=== PATIENT | female | born 1965 | race Caucasian/White ===

== ENCOUNTER 2021-05-18 08:16 | Inpatient (IN) | payer MEDICAID ==
[~2021-05-18] VITALS: Ht 165.1 cm; Wt 122.7 kg
[2021-05-18] MEDS ORDERED: acetaminophen 325mg tablet PO STA (08:48)
[2021-05-18] MEDS ORDERED: CefTRIAXone 2gm/D5W 50ml BAG 50 ML IV ONE (08:50)
[2021-05-18] MEDS ORDERED: normal saline 1000ML IV soln IV ONE (08:50)
[2021-05-18 09:49] LABS: BASOPHILS % (AUTO) 0.1 % (0-1); EOSINOPHILS % (AUTO) 0 % (0-6); HEMATOCRIT 39.1 % (35.0-45.0); LYMPHOCYTES # (AUTO) 1.1 X10'3 (1.1-4.8); LYMPHOCYTES % (AUTO) 5.1 % (21-51); MEAN CORPUSCULAR HEMOGLOBIN 31.7 PG (27.0-31.0); MEAN CORPUSCULAR HGB CONC 33.3 g/dL (33.0-36.5); MEAN CORPUSCULAR VOLUME 95.2 FL (78-98); MEAN PLATELET VOLUME 7.9 FL (7.4-10.4); MONOCYTES # (AUTO) 0.8 X10'3 (0-0.9); MONOCYTES % (AUTO) 3.9 % (2-12); NEUTROPHILS # (AUTO) 19.4 X10'3 (1.8-7.7); NEUTROPHILS % (AUTO) 90.9 % (42-75); PLATELET COUNT 191 X10'3 (140-440); RED BLOOD COUNT 4.11 X10'6 (4.20-5.60); RED CELL DISTRIBUTION WIDTH 13.5 % (11.5-14.5); WHITE BLOOD COUNT 21.3 X10'3 (4.5-11.0)
[2021-05-18] MEDS ORDERED: methylPREDNISolone sod succ 125mg/2ml vial IV ONE (10:05)
[2021-05-18] MEDS ORDERED: ipratropium/albuterol 3ml nebule NEB ONE (10:05)
[2021-05-18 10:06] LABS: ALANINE AMINOTRANSFERASE 36 U/L (12-78); ALBUMIN/GLOBULIN RATIO 0.7 (1.1-1.5); ANION GAP 8 (8-16); ASPARTATE AMINO TRANSFERASE 22 U/L (10-37); BLOOD UREA NITROGEN 22 MG/DL (7-18); BUN/CREATININE RATIO 9.5 (6.6-38.0); CALCIUM 8.8 MG/DL (8.5-10.1); CHLORIDE 95 MMOL/L (99-107); CREATININE 2.32 MG/DL (0.40-0.90); GLUCOSE 159 MG/DL (70-104); POTASSIUM 4.6 MMOL/L (3.5-5.1); SODIUM 128 MMOL/L (135-145); TOTAL CARBON DIOXIDE 25.1 MMOL/L (24-32); TOTAL PROTEIN 7.4 G/DL (6.4-8.2); eGFR 22 ML/MIN
[2021-05-18 10:48] LABS: TOTAL CELLS COUNTED 100; TOXIC VACUOLATION 1+
[2021-05-18 10:49] LABS: PLATELET ESTIMATE NORMAL; TOXIC GRANULATION 3+
--- NOTE | 2021-05-18 11:00 | NUR ---
RT AT BEDSIDE FOR BREATHING TREATMENT ORDERED.
[2021-05-18 11:11] LABS: ALKALINE PHOSPHATASE 84 IU/L (46-116)
[2021-05-18] MEDS ORDERED: potassium Cl 20 mEq SR tablet PO PRN ×2 (11:55)
[2021-05-18] MEDS ORDERED: magnesium 4gm in 100ml NS 100 ML IV PRN (11:55)
[2021-05-18] MEDS ORDERED: magnesium hydroxide 30ml (MOM) UD suspension PO PRN (11:55)
[2021-05-18] MEDS ORDERED: acetaminophen 325mg tablet PO PRN (11:55)
[2021-05-18] MEDS ORDERED: magnesium 2GM in 50ml NS 50 ML IV PRN (11:55)
[2021-05-18] MEDS ORDERED: mag hydrox/Alum hydrox/simeth 30ml oral suspension PO PRN (11:55)
[2021-05-18] MEDS ORDERED: potassium CL 10mEq/100ml bag 100 ML IV PRN (11:55)
[2021-05-18] MEDS ORDERED: magnesium Cl slow-release 64mg tablet PO PRN (11:55)
[2021-05-18] MEDS ORDERED: ondansetron/PF 4mg/2ml inj IV PRN (11:55)
[2021-05-18] MEDS: normal saline 1000ml 1,000 ML IV SCH ×2 (12:21→17:51)
[2021-05-18] MEDS ORDERED: LISI5TAB22 PO (12:33)
[2021-05-18] MEDS ORDERED: GABA300C PO (12:33)
[2021-05-18] MEDS ORDERED: CHOL500050 PO (12:33)
[2021-05-18] MEDS ORDERED: LAMO200T10 PO (12:33)
[2021-05-18] MEDS ORDERED: BUDE10.27 PO (12:33)
[2021-05-18] MEDS ORDERED: ALBU8.5H17 IH (12:33)
[2021-05-18] MEDS ORDERED: ATOR20TA66 PO (12:33)
[2021-05-18] MEDS ORDERED: METF-438 PO (12:33)
[2021-05-18] MEDS ORDERED: IBUP-1986 PO (12:33)
[2021-05-18] MEDS ORDERED: NALT50TA PO (12:33)
[2021-05-18] MEDS ORDERED: PALI3TAB5 PO (12:33)
[2021-05-18] MEDS ORDERED: albuterol 2.5 MG/3 ML nebule NEB PRN (12:40)
[2021-05-18 13:30] LABS: CLARITY,URINE SLIGHTLY CLOUDY (Clear); COLOR,URINE YELLOW (Yellow); GLUCOSE, URINE NEGATIVE (Neg); KETONES,URINE NEGATIVE (Neg); LEUKOCYTE ESTERASE ,URINE NEGATIVE (Neg); NITRITES, URINE NEGATIVE (Neg); OCCULT BLOOD,URINE SMALL (Neg); PROTEIN,URINE TRACE mg/dl (Neg); UROBILINOGEN,URINE 0.2 E.U/dL (0.2-1.0)
[2021-05-18 13:35] LABS: UA COLLECTION TYPE CLN CATCH MIDSTREAM
[2021-05-18 13:37] LABS: BACTERIA,URINE 1+ /HPF (Neg); RBC,URINE 0-2 /HPF (0-2); WBC,URINE 0-4 /HPF (0-4)
[2021-05-18 13:38] LABS: MUCUS STRANDS FEW /LPF (Neg); SQUAMOUS EPITHELIAL CELL,UR MANY /LPF (FEW)
[2021-05-18 13:56] LABS: MAGNESIUM 1.4 MG/DL (1.5-2.4)
[2021-05-18] MEDS ORDERED: albuterol 2.5 MG/3 ML nebule NEB SCH ×2 (14:00→20:00)
[2021-05-18] MEDS: gabapentin 300mg capsule PO SCH ×3 (14:41→20:51)
[2021-05-18 17:43] VITALS: BP 129/77
[2021-05-18] MEDS: nicotine 14mg patch - 24hr TD SCH (17:52)
[2021-05-18 18:00] VITALS: BP 124/65
--- NOTE | 2021-05-18 18:37 | NUR ---
Problems reprioritized. Patient report given, questions answered & plan of care reviewed with Vidhi MCMAHAN.
[2021-05-18] MEDS: K and/or MAG REPLACEMENT MC SCH (20:00)
[2021-05-18] MEDS: budesonide 0.5mg/2ml UD nebule IH SCH (20:36)
[2021-05-18] MEDS: docusate sod 100mg capsule PO SCH (20:51)
[2021-05-18] MEDS ORDERED: PALIPERIDONE 3 MG TAB.ER.24 PO SCH (21:00)
[2021-05-18] MEDS: ibuprofen tablet 400 MG TABLET PO PRN (21:47)
[2021-05-18] MEDS: LORazepam 2 mg/ml vial IV PRN (21:48)
[2021-05-18 22:00] VITALS: BP 150/82
[2021-05-19 02:00] VITALS: BP 122/70
[2021-05-19] MEDS: albuterol 2.5 MG/3 ML nebule NEB SCH ×4 (02:51→20:14)
[2021-05-19 06:00] VITALS: BP 136/80
[2021-05-19 06:29] LABS: BASOPHILS % (AUTO) 0.1 % (0-1); EOSINOPHILS % (AUTO) 0 % (0-6); HEMATOCRIT 36.7 % (35.0-45.0); HEMOGLOBIN 12.4 g/dl (12.0-16.0); LYMPHOCYTES # (AUTO) 0.8 X10'3 (1.1-4.8); LYMPHOCYTES % (AUTO) 5.3 % (21-51); MEAN CORPUSCULAR HEMOGLOBIN 31.9 PG (27.0-31.0); MEAN CORPUSCULAR HGB CONC 33.6 g/dL (33.0-36.5); MEAN CORPUSCULAR VOLUME 94.9 FL (78-98); MEAN PLATELET VOLUME 7.6 FL (7.4-10.4); MONOCYTES # (AUTO) 0.4 X10'3 (0-0.9); MONOCYTES % (AUTO) 2.8 % (2-12); NEUTROPHILS # (AUTO) 14.3 X10'3 (1.8-7.7); NEUTROPHILS % (AUTO) 91.8 % (42-75); PLATELET COUNT 184 X10'3 (140-440); RED BLOOD COUNT 3.87 X10'6 (4.20-5.60); RED CELL DISTRIBUTION WIDTH 13.5 % (11.5-14.5); WHITE BLOOD COUNT 15.5 X10'3 (4.5-11.0)
[2021-05-19 06:48] LABS: ALBUMIN 2.7 G/DL (3.4-5.0); ANION GAP 9 (8-16); BLOOD UREA NITROGEN 21 MG/DL (7-18); BUN/CREATININE RATIO 21.6 (6.6-38.0); CALCIUM 8.9 MG/DL (8.5-10.1); CHLORIDE 105 MMOL/L (99-107); CREATININE 0.97 MG/DL (0.40-0.90); GLUCOSE 288 MG/DL (70-104); SODIUM 136 MMOL/L (135-145); TOTAL CARBON DIOXIDE 22.2 MMOL/L (24-32); eGFR 60 ML/MIN
[2021-05-19] MEDS: normal saline 1000ml 1,000 ML IV SCH ×2 (07:55→18:00)
[2021-05-19] MEDS ORDERED: enoxaparin 40mg/0.4ml syringe SUBCUT SCH (08:00)
[2021-05-19] MEDS: K and/or MAG REPLACEMENT MC SCH ×2 (08:00→20:00)
[2021-05-19] MEDS: budesonide 0.5mg/2ml UD nebule IH SCH ×2 (08:58→20:00)
[2021-05-19] MEDS: nicotine 14mg patch - 24hr TD SCH (09:05)
[2021-05-19] MEDS: lamoTRIgine 100mg tablet PO SCH (09:05)
[2021-05-19] MEDS: cholecalciferol (vitamin D3) 1,000 unit (25mcg) tablet PO SCH (09:06)
[2021-05-19] MEDS: azithromycin 250mg tablet PO SCH (09:06)
[2021-05-19] MEDS: docusate sod 100mg capsule PO SCH ×2 (09:06→20:05)
[2021-05-19] MEDS: gabapentin 300mg capsule PO SCH (09:06)
[2021-05-19] MEDS: atorvastatin 20mg tablet PO SCH (09:06)
[2021-05-19] MEDS: lisinopril 5mg tablet PO SCH (09:07)
[2021-05-19] MEDS: CefTRIAXone/D5W-Rocephin 1gm 50 ML IV SCH (09:07)
[2021-05-19] MEDS: PALIPERIDONE 3 MG TAB.ER.24 PO SCH (10:47)
[2021-05-19] MEDS: naltrexone 50mg tablet PO SCH (10:48)
[2021-05-19 11:00] VITALS: BP 146/81
[2021-05-19] MEDS ORDERED: dextrose 50%-water 50ml dispensing syringe IV PRN ×2 (15:30)
[2021-05-19] MEDS ORDERED: dextrose ORAL solution 15 GM/59 ML bottle PO PRN ×2 (15:30)
[2021-05-19] MEDS ORDERED: MESSAGE TO PHARMACY PO ONE (15:30)
[2021-05-19] MEDS ORDERED: glucagon, human recombinant 1mg kit SUBCUT PRN (15:30)
[2021-05-19] MEDS ORDERED: insulin Lispro (HumaLOG) vial - multi-dose SQ SCH (15:30)
[2021-05-19] MEDS: LORazepam 2 mg/ml vial IV PRN ×2 (16:06→20:14)
[2021-05-19 16:10] LABS: HEMOGLOBIN A1C 6.9 % (4.5-6.2)
--- NOTE | 2021-05-19 17:45 | NUR ---
Miss Mast has been assessed as indicted. She has successfully delma treated for a headache x1 this shift. All of her home meds are in place. She did place a call to her mental health facility to verify that they were. Miss Mast is frequently tearful and the triggers are unpredictable. She states that she drinks more that 40ounces of beer daily. and she often reports that she wants beer "now". She reports hallucinations, stating that when she closes her eyes she sees people that she doesn't know. She has been medicated with PRN IV Ativan for anxiety. She tolerates IV fluids well.
[2021-05-19 18:00] VITALS: BP 158/87
--- NOTE | 2021-05-19 18:15 | NUR ---
Problems reprioritized. Patient report given, questions answered & plan of care reviewed with CHAYO MCMAHAN.
[2021-05-19] MEDS: ibuprofen tablet 400 MG TABLET PO PRN (20:05)
[2021-05-19 22:00] VITALS: BP 140/80
[2021-05-19] MEDS: insulin glargine (Lantus) pen - multi-dose SQ SCH (23:01)
[2021-05-20 02:00] VITALS: BP 132/78
[2021-05-20] MEDS: normal saline 1000ml 1,000 ML IV SCH ×3 (03:55→23:55)
[2021-05-20] MEDS: albuterol 2.5 MG/3 ML nebule NEB SCH ×4 (05:54→19:51)
[2021-05-20 06:00] VITALS: BP 175/97
--- NOTE | 2021-05-20 06:40 | NUR ---
Problems reprioritized. Patient report given, questions answered & plan of care reviewed with CED MCMAHAN.
[2021-05-20] MEDS: nicotine 14mg patch - 24hr TD SCH (07:02)
[2021-05-20] MEDS: LORazepam 2 mg/ml vial IV PRN ×2 (07:02→15:31)
[2021-05-20] MEDS: K and/or MAG REPLACEMENT MC SCH ×2 (08:00→20:00)
[2021-05-20] MEDS: CefTRIAXone/D5W-Rocephin 1gm 50 ML IV SCH (08:00)
[2021-05-20] MEDS: cholecalciferol (vitamin D3) 1,000 unit (25mcg) tablet PO SCH (09:22)
[2021-05-20] MEDS: lamoTRIgine 100mg tablet PO SCH (09:22)
[2021-05-20] MEDS: PALIPERIDONE 3 MG TAB.ER.24 PO SCH (09:22)
[2021-05-20] MEDS: gabapentin 400mg capsule PO SCH (09:23)
[2021-05-20] MEDS: naltrexone 50mg tablet PO SCH (09:23)
[2021-05-20] MEDS: lisinopril 5mg tablet PO SCH (09:24)
[2021-05-20] MEDS: gabapentin 300mg capsule PO SCH (09:24)
[2021-05-20] MEDS: budesonide 0.5mg/2ml UD nebule IH SCH ×2 (09:24→19:51)
[2021-05-20] MEDS: atorvastatin 20mg tablet PO SCH (09:25)
[2021-05-20] MEDS: enoxaparin 30mg/0.3ml syringe SUBCUT SCH (09:25)
[2021-05-20] MEDS: docusate sod 100mg capsule PO SCH ×2 (09:25→21:26)
[2021-05-20] MEDS: azithromycin 250mg tablet PO SCH (09:25)
[2021-05-20 11:00] VITALS: BP 196/102
[2021-05-20 13:34] LABS: BASOPHILS % (AUTO) 0.3 % (0-1); EOSINOPHILS % (AUTO) 0.2 % (0-6); HEMATOCRIT 37.7 % (35.0-45.0); HEMOGLOBIN 12.7 g/dl (12.0-16.0); LYMPHOCYTES # (AUTO) 2.3 X10'3 (1.1-4.8); LYMPHOCYTES % (AUTO) 20.2 % (21-51); MEAN CORPUSCULAR HEMOGLOBIN 31.8 PG (27.0-31.0); MEAN CORPUSCULAR HGB CONC 33.8 g/dL (33.0-36.5); MEAN CORPUSCULAR VOLUME 94.1 FL (78-98); MEAN PLATELET VOLUME 7.6 FL (7.4-10.4); MONOCYTES # (AUTO) 0.5 X10'3 (0-0.9); MONOCYTES % (AUTO) 4.1 % (2-12); NEUTROPHILS # (AUTO) 8.7 X10'3 (1.8-7.7); NEUTROPHILS % (AUTO) 75.2 % (42-75); PLATELET COUNT 215 X10'3 (140-440); RED BLOOD COUNT 4.01 X10'6 (4.20-5.60); RED CELL DISTRIBUTION WIDTH 13.4 % (11.5-14.5); WHITE BLOOD COUNT 11.6 X10'3 (4.5-11.0)
[2021-05-20] MEDS: hydrALAZINE 20mg/ml inj. IV PRN ×2 (14:50→22:20)
[2021-05-20 15:00] VITALS: BP 214/97
--- NOTE | 2021-05-20 17:45 | NUR ---
Miss Mast has been assessed as indicated. today he lung sounds were coarse. She has moist productive cough. She has requested mucinex. She tolerates IV Abx, IVF and nebulizers well. She has had several outbursts today. she yells out for beer or cigarettes. At the start of the shift she tried to leave the floor to go outside to smoke. She has periods of time when she is unexpectedly tearful and requires soothing. All efforts have been made to keep her as comfortable as possible. She was incontinent of bladder and was assisted back to bed and a purewick was placed. Blood pressure has been elevated and PRN IV Hydralazine has been added to the MAR. And she has been given one dose. PO intake has been limited, She is presently resting quietly and will continue to be monitored.
[2021-05-20 18:00] VITALS: BP 159/90
--- NOTE | 2021-05-20 18:29 | NUR ---
Problems reprioritized. Patient report given, questions answered & plan of care reviewed with KATIA MCMAHAN
--- NOTE | 2021-05-20 20:27 | NUR ---
patient in bed very restless sob at rest on upon exertion 02 sat at 90% on room air. Rt called sharad tx given 02 at 93% Patient stated that she uses CPAP at night . called placed to Dr Voss new order received for Cpap order read back.
[2021-05-20] MEDS: insulin glargine (Lantus) pen - multi-dose SQ SCH (21:00)
[2021-05-20] MEDS: guaiFENesin ER 600mg tablet PO SCH (21:26)
[2021-05-20 22:00] VITALS: BP 177/92
[2021-05-20] MEDS: ibuprofen tablet 400 MG TABLET PO PRN (23:43)
[2021-05-21 02:00] VITALS: BP 158/88
[2021-05-21] MEDS: albuterol 2.5 MG/3 ML nebule NEB SCH ×2 (02:29→10:04)
--- NOTE | 2021-05-21 04:51 | NUR ---
Patient was in cpaap for couple hours assisted patient to bathroom return to bed but refused Cpap. Patient also refused telebox Mr Voss aware.
[2021-05-21 06:59] LABS: BASOPHILS % (AUTO) 0.4 % (0-1); EOSINOPHILS % (AUTO) 0.2 % (0-6); HEMOGLOBIN 12.8 g/dl (12.0-16.0); LYMPHOCYTES % (AUTO) 26.2 % (21-51); MEAN CORPUSCULAR HEMOGLOBIN 32.2 PG (27.0-31.0); MEAN CORPUSCULAR HGB CONC 34.7 g/dL (33.0-36.5); MONOCYTES # (AUTO) 0.5 X10'3 (0-0.9); MONOCYTES % (AUTO) 7.2 % (2-12); NEUTROPHILS # (AUTO) 5.1 X10'3 (1.8-7.7); PLATELET COUNT 201 X10'3 (140-440); RED BLOOD COUNT 3.98 X10'6 (4.20-5.60); RED CELL DISTRIBUTION WIDTH 13.3 % (11.5-14.5); WHITE BLOOD COUNT 7.6 X10'3 (4.5-11.0)
[2021-05-21 07:22] LABS: ANION GAP 8 (8-16); BLOOD UREA NITROGEN 9 MG/DL (7-18); CALCIUM 9.1 MG/DL (8.5-10.1); CHLORIDE 103 MMOL/L (99-107); CREATININE 0.53 MG/DL (0.40-0.90); GLUCOSE 148 MG/DL (70-104); POTASSIUM 3.6 MMOL/L (3.5-5.1); SODIUM 137 MMOL/L (135-145); TOTAL CARBON DIOXIDE 26.1 MMOL/L (24-32); eGFR > 90 ML/MIN
[2021-05-21] MEDS: cholecalciferol (vitamin D3) 1,000 unit (25mcg) tablet PO SCH (08:27)
[2021-05-21] MEDS: PALIPERIDONE 3 MG TAB.ER.24 PO SCH (08:27)
[2021-05-21] MEDS: lamoTRIgine 100mg tablet PO SCH (08:27)
[2021-05-21 08:28] VITALS: BP_SYST 142
[2021-05-21] MEDS: docusate sod 100mg capsule PO SCH (08:28)
[2021-05-21] MEDS: gabapentin 300mg capsule PO SCH (08:28)
[2021-05-21] MEDS: lisinopril 5mg tablet PO SCH (08:28)
[2021-05-21] MEDS: gabapentin 400mg capsule PO SCH (08:28)
[2021-05-21] MEDS: atorvastatin 20mg tablet PO SCH (08:29)
[2021-05-21] MEDS: nicotine 14mg patch - 24hr TD SCH (08:29)
[2021-05-21] MEDS: guaiFENesin ER 600mg tablet PO SCH (08:29)
[2021-05-21] MEDS: azithromycin 250mg tablet PO SCH (08:29)
[2021-05-21] MEDS: naltrexone 50mg tablet PO SCH (08:29)
[2021-05-21] MEDS: enoxaparin 30mg/0.3ml syringe SUBCUT SCH (08:29)
[2021-05-21] MEDS: CefTRIAXone/D5W-Rocephin 1gm 50 ML IV SCH (08:30)
[2021-05-21] MEDS: budesonide 0.5mg/2ml UD nebule IH SCH (10:02)
[2021-05-21] MEDS ORDERED: LEVO750T46 PO (11:42)
--- NOTE | 2021-05-21 14:15 | NUR ---
Miss Mast has been assesed as indicated. She is being DC today. She is complaint with the plan to DC. She has no s/s of distress or discomfort. IV acces was removed. DC instructions have been reviewed. All questions have been answered. Her rx have been sent to [facility] in [place]. She was escorted to her personal car by staff, via a WC.
== END 2021-05-21 14:00 | disposition home or self-care (01) | DRG 720 ==
LOC: ER 08:16 → ED HOLD 11:54 → PCU 3S 17:24
PROVIDERS: ADMIT Family Medicine; ATTEND Family Medicine
DX: A41.9 Sepsis, unspecified organism (principal); N17.0 Acute kidney failure with tubular necrosis; J18.9 Pneumonia, unspecified organism; E87.1 Hypo-osmolality and hyponatremia; J44.0 Chronic obstructive pulmonary disease with (acute) lower respiratory infection; I95.9 Hypotension, unspecified; Z20.822 Contact with and (suspected) exposure to COVID-19; E66.01 Morbid (severe) obesity due to excess calories; E11.9 Type 2 diabetes mellitus without complications; E78.5 Hyperlipidemia, unspecified; F15.10 Other stimulant abuse, uncomplicated; F17.210 Nicotine dependence, cigarettes, uncomplicated; F31.9 Bipolar disorder, unspecified; I10 Essential (primary) hypertension; J44.1 Chronic obstructive pulmonary disease with (acute) exacerbation; Z68.42 Body mass index [BMI] 45.0-49.9, adult; Z79.899 Other long term (current) drug therapy; Z71.6 Tobacco abuse counseling; Z71.51 Drug abuse counseling and surveillance of drug abuser
CPT/HCPCS: 36415; 71045; 80048; 80053; 81001; 82948; 83036; 83605; 83735; 84145; 85007; 85025; 87040; 87077; 87081; 87186; 87502; 87503; 87635; 93005; 93306; 94640; 94660; 94664; 94760; 96365; 96375; 99291; C9803; G0378; J0360; J0696; J1650; J1815; J2060; J2930; J7030

== ENCOUNTER 2021-06-18 11:26 | Emergency (ER) | payer MEDICAID ==
[~2021-06-18] VITALS: Ht 165.1 cm; Wt 126.4 kg
[~2021-06-18 11:26] MED LIST: ALBU8.5H17 IH; ATOR20TA66 PO; BUDE10.27 PO; CHOL500050 PO; GABA300C PO; IBUP-1986 PO; LAMO200T10 PO; LISI5TAB22 PO; METF-438 PO; NALT50TA PO; PALI3TAB5 PO
[2021-06-18 12:06] VITALS: BP 119/68
[2021-06-18 12:51] LABS: CLARITY,URINE SLIGHTLY CLOUDY (Clear); GLUCOSE, URINE NEGATIVE (Neg); KETONES,URINE NEGATIVE (Neg); LEUKOCYTE ESTERASE ,URINE NEGATIVE (Neg); NITRITES, URINE NEGATIVE (Neg); OCCULT BLOOD,URINE NEGATIVE (Neg); PROTEIN,URINE NEGATIVE (Neg); UROBILINOGEN,URINE 0.2 E.U/dL (0.2-1.0)
[2021-06-18 12:57] LABS: URINE AMPHETAMINE SCREEN POSITIVE (Neg); URINE BARBITUATE SCREEN NEGATIVE (Neg); URINE BENZODIAZEPINES SCREEN NEGATIVE (Neg); URINE CANNABINOID SCREEN NEGATIVE (Neg); URINE COCAINE SCREEN NEGATIVE (Neg); URINE METHADONE SCREEN NEGATIVE (Neg); URINE OPIATE SCREEN NEGATIVE (Neg); URINE PHENCYCLIDINE SCREEN NEGATIVE (Neg)
[2021-06-18 13:00] LABS: BASOPHILS % (AUTO) 0.3 % (0-1); EOSINOPHILS # (AUTO) 0.1 X10'3 (0-0.9); EOSINOPHILS % (AUTO) 1.1 % (0-6); HEMATOCRIT 43.3 % (35.0-45.0); HEMOGLOBIN 14.5 g/dl (12.0-16.0); LYMPHOCYTES # (AUTO) 2.9 X10'3 (1.1-4.8); LYMPHOCYTES % (AUTO) 35.1 % (21-51); MEAN CORPUSCULAR HEMOGLOBIN 30.8 PG (27.0-31.0); MEAN CORPUSCULAR HGB CONC 33.4 g/dL (33.0-36.5); MEAN PLATELET VOLUME 7.4 FL (7.4-10.4); MONOCYTES # (AUTO) 0.4 X10'3 (0-0.9); MONOCYTES % (AUTO) 4.5 % (2-12); NEUTROPHILS # (AUTO) 4.9 X10'3 (1.8-7.7); PLATELET COUNT 200 X10'3 (140-440); RED CELL DISTRIBUTION WIDTH 13.2 % (11.5-14.5); WHITE BLOOD COUNT 8.3 X10'3 (4.5-11.0)
[2021-06-18 13:04] LABS: COLOR,URINE STRAW (Yellow); UA COLLECTION TYPE NON-SPECIFIED
[2021-06-18 13:07] LABS: ALANINE AMINOTRANSFERASE 38 U/L (12-78); ALBUMIN 3.6 G/DL (3.4-5.0); ALBUMIN/GLOBULIN RATIO 0.8 (1.1-1.5); ALKALINE PHOSPHATASE 110 IU/L (46-116); ANION GAP 16 (8-16); ASPARTATE AMINO TRANSFERASE 21 U/L (10-37); BILIRUBIN,TOTAL 0.3 MG/DL (0.1-1.0); BLOOD UREA NITROGEN 11 MG/DL (7-18); BUN/CREATININE RATIO 13.4 (6.6-38.0); CALCIUM 9.6 MG/DL (8.5-10.1); CHLORIDE 104 MMOL/L (99-107); CREATININE 0.82 MG/DL (0.40-0.90); ETHANOL 0.025 GM/DL (0.0-0.010); GLUCOSE 101 MG/DL (70-104); POTASSIUM 4.1 MMOL/L (3.5-5.1); SODIUM 142 MMOL/L (135-145); TOTAL PROTEIN 7.9 G/DL (6.4-8.2); eGFR 72 ML/MIN
[2021-06-18 13:07] LABS: SQUAMOUS EPITHELIAL CELL,UR FEW /LPF (FEW)
[2021-06-18 13:08] LABS: BACTERIA,URINE FEW /HPF (Neg); RBC,URINE 0-2 /HPF (0-2); WBC,URINE 0-4 /HPF (0-4)
[2021-06-18] MEDS ORDERED: MYCOL30CR TP (13:43)
== END 2021-06-18 13:51 | disposition home or self-care (01) ==
LOC: ER 11:27
DX: F10.129 Alcohol abuse with intoxication, unspecified (principal); F15.10 Other stimulant abuse, uncomplicated; R53.1 Weakness; E86.0 Dehydration; R51.9 Headache, unspecified; R11.0 Nausea; I10 Essential (primary) hypertension; J44.9 Chronic obstructive pulmonary disease, unspecified; E11.9 Type 2 diabetes mellitus without complications; Z79.899 Other long term (current) drug therapy; Y90.0 Blood alcohol level of less than 20 mg/100 ml
CPT/HCPCS: 36415; 80053; 80305; 80320; 81001; 82948; 85025; 99283